=== PATIENT | male | born 1975 | race Two or more races ===

== ENCOUNTER 2022-06-23 16:13 | Emergency (ER) | payer MEDICAID ==
[~2022-06-23] VITALS: Ht 162.6 cm; Wt 115.7 kg
--- NOTE | 2022-06-23 16:30 | NUR ---
REceived pt 46 yrs male c/o headack since last night no weekness dineses any mubnness awake and alert waliing with stady gaite
--- NOTE | 2022-06-23 17:05 | NUR ---
INSERTED ANGO CATHETER G 18 ON LT AC BLOOD DROW AND SENT TO LAB
[2022-06-23] MEDS ORDERED: MECLIZINE HCL 12.5 MG TABLET PO ONE (17:30)
[2022-06-23] MEDS ORDERED: MECLIZINE HCL 25 MG TABLET ONE (17:34)
[2022-06-23] MEDS ORDERED: MORPHINE SULFATE INJ 4 MG/ML DISP.SYRIN ONE (17:35)
[2022-06-23] MEDS: MORPHINE SULFATE INJ 2 MG/ML DISP.SYRIN IV ONE ×2 (17:38→17:39)
[2022-06-23 17:40] LABS: BASOPHILS # (AUTO) 0.1 K/uL (0.0-0.2); BASOPHILS % (AUTO) 0.7 % (0.0-2.0); EOSINOPHILS % (AUTO) 4.5 % (0.0-6.0); HEMATOCRIT 43 % (39-51); LYMPHOCYTES # (AUTO) 2.1 K/uL (0.8-4.8); MEAN CORPUSCULAR HGB CONC 33 g/dl (31.0-36.0); MEAN CORPUSCULAR VOLUME 84 fL (80-96); MONOCYTES # (AUTO) 0.3 K/uL (0.1-1.30); MONOCYTES % (AUTO) 3.8 % (2.0-12.0); NEUTROPHILS # (AUTO) 6.3 K/uL (1.8-8.9); PLATELET COUNT (AUTO) 252 K/uL (150-450); RED BLOOD CELL COUNT(AUTO) 5.06 MIL/uL (4.5-6.0); WHITE BLOOD COUNT (AUTO) 9.2 K/uL (4.3-11.0)
[2022-06-23 18:29] LABS: ALANINE AMINOTRANSFERASE 67 U/L (12-78); ALKALINE PHOSPHATASE 73 U/L (46-116); ASPARTATE AMINOTRANSFERASE 24 U/L (15-37); BILIRUBIN,DIRECT 0.1 mg/dL (0.0-0.2); BILIRUBIN,TOTAL 0.4 mg/dL (0.2-1.0); CALCIUM, SERUM 9.1 mg/dL (8.5-10.1); GLUCOSE 116 mg/dL (74-106); TOTAL PROTEIN, SERUM 7.6 g/dL (6.4-8.2); UREA NITROGEN, BLOOD 8 mg/dL (7-18)
--- NOTE | 2022-06-23 18:30 | NUR ---
TO CT SCAN OF HEAD
[2022-06-23 18:34] LABS: CARBON DIOXIDE 27 mmol/L (21-32); CHLORIDE 104 mmol/L (98-107); POTASSIUM 3.6 mmol/L (3.5-5.1); SODIUM SERUM 141 mmol/L (136-145)
--- NOTE | 2022-06-23 19:00 | NUR ---
BACK FROM CT SCAN
--- NOTE | 2022-06-23 19:20 | NUR ---
Pt is noted alert, responsive as report is received from the off going nurse that , Pt came from Home C/O Headache and Ne[place]a since AM with family at bedside. Pt care continue as awaits test results while monitor closely for any S/S off distress or change in conditions.
--- NOTE | 2022-06-23 19:21 | NUR ---
HAND OFF RAS FAROOQ
[2022-06-23] MEDS ORDERED: MECL-159 PO (20:09)
--- NOTE | 2022-06-23 20:20 | NUR ---
Pt is noted off the unit as he is been discharge to home with all discharge instructions given and no s/s off distress or C/O pain.
[2022-06-23 20:22] VITALS: BP 121/76
== END 2022-06-23 20:23 | disposition home or self-care (01) ==
LOC: ER 16:19
DX: R07.89 Other chest pain (principal); R42 Dizziness and giddiness; R51.9 Headache, unspecified; Z60.2 Problems related to living alone
CPT/HCPCS: 99285; 96374; 70450; 71045; 93005; 85025; 80048; 80076; 36415; 84484 ×2; J8597; J2270

== ENCOUNTER 2023-02-15 10:18 | Emergency (ER) | payer MEDICAID ==
[~2023-02-15] VITALS: Ht 162.6 cm; Wt 106.6 kg
[~2023-02-15 10:18] MED LIST: MECL-159 PO
[2023-02-15 10:31] VITALS: BP 131/73; TEMP 98.4; O2SAT 99
[2023-02-15] MEDS ORDERED: KETOROLAC TROMETHAMINE 15 MG/ML VIAL IM ONE (12:00)
[2023-02-15] MEDS ORDERED: KETOROLAC TROMETHAMINE 15 MG/ML VIAL ONE (12:07)
[2023-02-15] MEDS ORDERED: IBUP-1955 PO (12:28)
[2023-02-15] MEDS ORDERED: AMOX500C2 PO (12:28)
[2023-02-15] MEDS ORDERED: BENZ-13 PO (12:28)
== END 2023-02-15 13:22 | disposition home or self-care (01) ==
LOC: ER 10:18
DX: J06.9 Acute upper respiratory infection, unspecified (principal); R05.9 Cough, unspecified; R09.81 Nasal congestion; J02.9 Acute pharyngitis, unspecified; E78.5 Hyperlipidemia, unspecified; Z88.8 Allergy status to other drugs, medicaments and biological substances; Z60.2 Problems related to living alone; Z20.822 Contact with and (suspected) exposure to COVID-19
CPT/HCPCS: 99283; 87426; 96372; 87804 ×2; 87880; J1885; 86403-TC